=== PATIENT | female | born 1950 | race Hispanic/Latino ===

== ENCOUNTER 2017-04-20 06:35 | Day surgery (SDC) | payer SELFPAY ==
[2017-04-20] VITALS (8 sets, daily range): BP systolic 133–147; BP diastolic 53–74
[~2017-04-20] VITALS: Ht 160 cm; Wt 62.6 kg
[~2017-04-20 06:35] MED LIST: AMITIZA24 MC1 PO; ASPIRIN81 MG PO; GLIMEPIRIDE2 MG PO; LOSARTAN POT50 MG PO; METFORMIN850 MG PO
[2017-04-20 15:57] LABS: HEMATOCRIT 31.1 % (37.0-47.0); HEMOGLOBIN 10.6 g/dl (12.0-16.0)
[2017-04-21 04:00] VITALS: BP 137/65
[2017-04-21 07:47] VITALS: BP 151/67
[2017-04-21 15:00] VITALS: BP 148/62
[2017-04-21 17:15] LABS: HEMATOCRIT 33.4 % (37.0-47.0); HEMOGLOBIN 11.3 g/dl (12.0-16.0); IMMATURE GRANULOCYTES 0.9 % (0.0-1.0); MEAN CELL VOLUME 89.3 fL CALC (80.0-100.0); MEAN CORPUSCULAR HGB 30.2 pG CALC (26.0-32.0); MEAN CORPUSCULAR HGB CONC 33.8 g/L CALC (32.0-36.0); RED BLOOD COUNT 3.74 mill/uL (4.20-5.60); RED CELL DISTRI WIDTH 12.2 % (11.5-15.5)
[2017-04-21 19:00] VITALS: BP 148/65
[2017-04-22 04:38] VITALS: BP 184/78
[2017-04-22 07:30] VITALS: BP 147/64
[2017-04-22] MEDS ORDERED: LORTAB 7.5-3251 TAB PO (07:41)
[2017-04-22] MEDS ORDERED: MACRODANTIN100 MG PO (07:43)
[2017-04-22] MEDS ORDERED: PHENERGAN25 MG/TAB PO (07:45)
[2017-04-22 08:26] VITALS: BP 147/64
== END 2017-04-22 10:07 | disposition home or self-care (01) | DRG 742 ==
LOC: ORM 06:35 → MS2 06:35 → ORM 07:30 → MS2 10:50 → ORM 04-22 10:07
PROVIDERS: ATTEND Obstetrics & Gynecology
PROC: 0UT97ZZ Resection of Uterus, Via Natural or Artificial Opening (ICD-10-PCS; principal; 2017-04-20)
PROC: 0UTC7ZZ Resection of Cervix, Via Natural or Artificial Opening (ICD-10-PCS; 2017-04-20)
PROC: 0UT77ZZ Resection of Bilateral Fallopian Tubes, Via Natural or Artificial Opening (ICD-10-PCS; 2017-04-20)
PROC: 0JQC0ZZ Repair Pelvic Region Subcutaneous Tissue and Fascia, Open Approach (ICD-10-PCS; 2017-04-20)
PROC: 0UQF0ZZ Repair Cul-de-sac, Open Approach (ICD-10-PCS; 2017-04-20)
PROC: 0TQB7ZZ Repair Bladder, Via Natural or Artificial Opening (ICD-10-PCS; 2017-04-20)
DX: N81.2 Incomplete uterovaginal prolapse (principal); N99.71 Accidental puncture and laceration of a genitourinary system organ or structure during a genitourinary system procedure; I10 Essential (primary) hypertension; E11.9 Type 2 diabetes mellitus without complications
CPT/HCPCS: Q9967; Q9968

== ENCOUNTER 2017-04-30 00:05 | Emergency (ER) | payer SELFPAY ==
[~2017-04-30] VITALS: Ht 160 cm; Wt 71.0 kg
[~2017-04-30 00:05] MED LIST changes: +LORTAB 7.5-3251 TAB PO; +MACRODANTIN100 MG PO; +PHENERGAN25 MG/TAB PO
[2017-04-30 01:21] LABS: HEMOGLOBIN 13.6 g/dl (12.0-16.0); IMMATURE GRANULOCYTES 0.8 % (0.0-1.0); MEAN CELL VOLUME 88.1 fL CALC (80.0-100.0); NEUT# 8.58 thou/uL (2.00-7.15); RED BLOOD COUNT 4.54 mill/uL (4.20-5.60); RED CELL DISTRI WIDTH 12.6 % (11.5-15.5)
[2017-04-30 01:30] LABS: ALBUMIN 4.6 g/dL (3.2-5.0); ALKALINE PHOSPHATASE 130 u/l (38-126); AMYLASE 44 u/l (30-110); ANION GAP 21 (6-22 (CALC)); BILIRUBIN, TOTAL 0.6 mg/dL (0.0-1.4); BUN 15 mg/dL (8-23); BUN/CREATININE RATIO 19 (12-20 (CALC)); CALCIUM 9.8 mg/dL (8.4-10.2); CARBON DIOXIDE 21 mmol/l (22-30); CHLORIDE 101 mmol/l (95-108); CREATININE 0.8 mg/dL (0.5-1.0); GFR > 60 ML/MIN (>=60 (CALC)); GFR FOR AFR.AMER. > 60 ML/MIN (>=60 (CALC)); GLUCOSE 276 mg/dL (82-115); LIPASE 71 u/l (23-300); POTASSIUM 4.7 mmol/l (3.5-5.1); SGOT/AST 41 u/l (9-36); SGPT/ALT 34 u/l (11-66); SODIUM 138 mmol/l (137-146); TOTAL PROTEIN 7.5 g/dL (6.3-8.2)
[2017-04-30 02:27] LABS: URINE BILIRUBIN - DIPSTICK NEGATIVE (NEGATIVE); URINE BLOOD DIPSTICK TRACE-INTACT (NEGATIVE); URINE CLARITY CLEAR; URINE COLOR YELLOW; URINE GLUCOSE - DIPSTICK NEGATIVE (NEGATIVE); URINE KETONE NEGATIVE (NEGATIVE); URINE LEUK ESTERASE NEGATIVE (NEGATIVE); URINE NITRITE - DIPSTICK NEGATIVE (Negative); URINE PROTEIN - DIPSTICK NEGATIVE (NEG-TRACE); URINE SPECIFIC GRAVITY <=1.005; URINE UROBILINOGEN - DIPSTICK 0.2 E.U./dL (0.2)
[2017-04-30 03:25] VITALS: BP 161/72
[2017-05-01] MEDS ORDERED: LORTAB 10-325 M1 TAB PO (21:10)
[2017-05-01] MEDS ORDERED: BACTRIM DS1 TAB PO (21:10)
== END 2017-04-30 03:03 | disposition home or self-care (01) | DRG 392 ==
LOC: ED 00:05
PROVIDERS: Emergency Medicine
DX: R10.33 Periumbilical pain (principal); K59.00 Constipation, unspecified; Z98.890 Other specified postprocedural states
CPT/HCPCS: Q9967

== ENCOUNTER 2017-05-01 18:30 | Emergency (ER) | payer SELFPAY ==
[~2017-05-01] VITALS: Ht 160 cm; Wt 62.7 kg
[2017-05-01 20:08] LABS: URINE BILIRUBIN - DIPSTICK NEGATIVE (NEGATIVE); URINE BLOOD DIPSTICK LARGE (NEGATIVE); URINE COLOR YELLOW; URINE GLUCOSE - DIPSTICK NEGATIVE (NEGATIVE); URINE KETONE NEGATIVE (NEGATIVE); URINE NITRITE - DIPSTICK NEGATIVE (Negative); URINE PH 5.5 (4.5-8.0); URINE PROTEIN - DIPSTICK 30 mg/dL (NEG-TRACE); URINE SPECIFIC GRAVITY 1.015
[2017-05-01 20:09] LABS: URINE CLARITY CLOUDY; URINE LEUK ESTERASE MODERATE (NEGATIVE)
[2017-05-01 20:32] LABS: URINE RBC TNTC RBC/hpf (0-5)
[2017-05-01 20:33] LABS: URINE BACTERIA MANY hpf; URINE SQUAMOUS EPITHELIAL CELL FEW EPI/hpf (0-FEW); URINE WBC TNTC WBC/hpf (0-5)
[2017-05-01 21:04] VITALS: BP 147/68
[2017-05-01] MEDS ORDERED: BACTRIM DS1 TAB PO (21:10)
[2017-05-01] MEDS ORDERED: LORTAB 10-325 M1 TAB PO (21:10)
== END 2017-05-01 21:27 | disposition home or self-care (01) | DRG 690 ==
LOC: ED 18:30
PROVIDERS: Emergency Medicine
DX: N39.0 Urinary tract infection, site not specified (principal); I10 Essential (primary) hypertension; E11.9 Type 2 diabetes mellitus without complications; Z87.440 Personal history of urinary (tract) infections; Z90.711 Acquired absence of uterus with remaining cervical stump